=== PATIENT | female | born 1985 | race Caucasian/White ===

== ENCOUNTER 2021-09-07 12:27 | Emergency (ER) | payer SELFPAY ==
[~2021-09-07] VITALS: Ht 167.4 cm; Wt 68.0 kg
[~2021-09-07 12:27] MED LIST: FRS325T PO; HYDR-3583 PO; IBP600T1 PO; KCL20TCR PO; METR500T PO; NITR-65 PO; PREN1TAB39 PO; SERT25TA; [UNRECOGNIZED DRUG - REMARK] PO
[2021-09-07 13:38] LABS: BASOPHILS % (AUTO) 0 % (0-10); EOSINOPHILS % (AUTO) 0 % (0-10); HEMATOCRIT 35 % (35-52); HEMOGLOBIN 11.4 g/dL (11.5-16.0); LYMPHOCYTES # (AUTO) 0.4 10^3/uL (1.0-4.0); LYMPHOCYTES % (AUTO) 4 % (12-44); MEAN CORPUSCULAR HEMOGLOBIN 27 pg (25-34); MEAN CORPUSCULAR HGB CONC 33 g/dL (32-36); MEAN CORPUSCULAR VOLUME 82 fL (80-99); MEAN PLATELET VOLUME 10.5 fL (9.0-12.2); MONOCYTES # (AUTO) 0.9 10^3/uL (0.0-1.0); MONOCYTES % (AUTO) 11 % (0-12); NEUTROPHILS # (AUTO) 7.3 10^3/uL (1.8-7.8); NEUTROPHILS % (AUTO) 84 % (42-75); PLATELET COUNT 177 10^3/uL (130-400); WHITE BLOOD COUNT 8.7 10^3/uL (4.3-11.0)
[2021-09-07 13:49] LABS: HYPOCHROMASIA SLIGHT; LYMPHOCYTES % (MANUAL) 3 %; MONOCYTES % (MANUAL) 10 %; NEUTROPHILS % (MANUAL) 87 %
[2021-09-07 13:59] LABS: ALBUMIN 3.8 GM/DL (3.2-4.5)
[2021-09-07 14:00] LABS: POTASSIUM 4.1 MMOL/L (3.6-5.0)
[2021-09-07 14:01] LABS: CALCIUM 8.6 MG/DL (8.5-10.1)
[2021-09-07 14:02] LABS: TOTAL PROTEIN 6.3 GM/DL (6.4-8.2)
[2021-09-07 14:04] LABS: BILIRUBIN,TOTAL 0.3 MG/DL (0.1-1.0)
[2021-09-07 14:06] LABS: CREATININE SERUM 0.64 MG/DL (0.60-1.30)
[2021-09-07] MEDS ORDERED: NS IV 1000 ML 1,000 ML IV ONE (14:15)
[2021-09-07] MEDS ORDERED: KETOROLAC 30 MG/ML VIAL IVP ONE (14:15)
[2021-09-07] MEDS ORDERED: ACETAMINOPHEN 500 MG TAB (TYLENOL) PO ONE (14:15)
--- NOTE | 2021-09-07 14:30 | ED Cough/URI ---
General Chief Complaint: COVID19 Suspect/Confirmed Stated Complaint: BODY ACHES,N/V,COUGH, CHILLS Nursing Triage Note: BEGAN HAVING SYMPTOMS LAST NIGHT OF COUGH, FATIGUE, FEELING VERY TIRED, AND CHILLING AT HOME. Source: patient Exam Limitations: no limitations History of Present Illness Date Seen by Provider: Sep 07, 2021 Time Seen by Provider: 13:59 Initial Comments This is a 36-year-old female who presented to the ER via POV with complaints of cough, generalized body aches fatigue and chills that started around midnight last night. Allergies and Home Medications Allergies Coded Allergies: No Known Drug Allergies (Unverified , 09/07/08) Past Kfgzvrr-Fgxrgr-Nszlzz Hx Patient Social History Tobacco Use?: Yes Tobacco type used: Cigarettes Smoking Status: Current Everyday Smoker Use of E-Cig and/or Vaping dev: No Substance use?: No Alcohol Use?: No Pt feels they are or have been: No Immunizations Up To Date Influenza Vaccine Up-to-Date: No; Not Current First/Initial COVID19 Vaccinat: DECLINED Past Medical History Reproductive Disorders: No Sexually Transmitted Disease: Yes (IN THE PAST) Physical Exam Vital Signs - First Documented 09/07/21 13:10 Temp 37.4 Pulse 104 Resp 23 B/P (MAP) 105/69 (81) Pulse Ox 100 Capillary Refill : Less Than 3 Seconds Height: 5'2" Weight: 155lbs. oz. 70.081349us; 24.00 BMI Method:Stated Progress/Results/Core Measures Suspected Sepsis SIRS Temperature: Pulse: 104 Respiratory Rate: 23 Laboratory Tests 09/07/21 13:16: White Blood Count 8.7 Blood Pressure 105 /69 Mean: 81 Laboratory Tests 09/07/21 13:16: Creatinine 0.64, Platelet Count 177, Total Bilirubin 0.3 Results/Orders Lab Results Laboratory Tests Test 09/07/21 13:16 Range/Units White Blood Count 8.7 4.3-11.0 10^3/uL Red Blood Count 4.28 3.80-5.11 10^6/uL Hemoglobin 11.4 L 11.5-16.0 g/dL Hematocrit 35 35-52 % Mean Corpuscular Volume 82 80-99 fL Mean Corpuscular Hemoglobin 27 25-34 pg Mean Corpuscular Hemoglobin Concent 33 32-36 g/dL Red Cell Distribution Width 16.8 H 10.0-14.5 % Platelet Count 177 130-400 10^3/uL Mean Platelet Volume 10.5 9.0-12.2 fL Immature Granulocyte % (Auto) 1 % Neutrophils (%) (Auto) 84 H 42-75 % Lymphocytes (%) (Auto) 4 L 12-44 % Monocytes (%) (Auto) 11 0-12 % Eosinophils (%) (Auto) 0 0-10 % Basophils (%) (Auto) 0 0-10 % Neutrophils # (Auto) 7.3 1.8-7.8 10^3/uL Lymphocytes # (Auto) 0.4 L 1.0-4.0 10^3/uL Monocytes # (Auto) 0.9 0.0-1.0 10^3/uL Eosinophils # (Auto) 0.0 0.0-0.3 10^3/uL Basophils # (Auto) 0.0 0.0-0.1 10^3/uL Immature Granulocyte # (Auto) 0.1 0.0-0.1 10^3/uL Neutrophils % (Manual) 87 % Lymphocytes % (Manual) 3 % Monocytes % (Manual) 10 % Hypochromasia SLIGHT Sodium Level 137 135-145 MMOL/L Potassium Level 4.1 3.6-5.0 MMOL/L Chloride Level 104 98-107 MMOL/L Carbon Dioxide Level 22 21-32 MMOL/L Anion Gap 11 5-14 MMOL/L Blood Urea Nitrogen 10 7-18 MG/DL Creatinine 0.64 0.60-1.30 MG/DL Estimat Glomerular Filtration Rate 116 BUN/Creatinine Ratio 16 Glucose Level 94 70-105 MG/DL Calcium Level 8.6 8.5-10.1 MG/DL Corrected Calcium 8.8 8.5-10.1 MG/DL Total Bilirubin 0.3 0.1-1.0 MG/DL Aspartate Amino Transf (AST/SGOT) 24 5-34 U/L Alanine Aminotransferase (ALT/SGPT) 23 0-55 U/L Alkaline Phosphatase 56 40-136 U/L Total Protein 6.3 L 6.4-8.2 GM/DL Albumin 3.8 3.2-4.5 GM/DL Influenza Type A (RT-PCR) Not Detected Not Detecte Influenza Type B (RT-PCR) Not Detected Not Detecte SARS-CoV-2 RNA (RT-PCR) Detected H Not Detecte My Orders Orders - MOUNA MCCLELLAND TRA[employer] EXAMINER Cbc With Automated Diff (09/07/21 13:30) Comprehensive Metabolic Panel (09/07/21 13:30) Urine Bedside (09/07/21 13:30) Urinalysis (09/07/21 13:30) Drug Screen Stat (Urine) (09/07/21 13:30) Covid 19 Inhouse Test (09/07/21 13:30) Influenza A And B By Pcr (09/07/21 13:30) Manual Differential (09/07/21 13:16) Ns Iv 1000 Ml (Sodium Chloride 0.9%) (09/07/21 14:15) Acetaminophen Tablet (Tylenol Tablet) (09/07/21 14:15) Ketorolac Injection (Toradol Injection) (09/07/21 14:15) Chest 1 View, Ap/Pa Only (09/07/21 14:03) Rx-Nirmatrelvir/Ritonavir(Eua) (Rx-Paxlo (09/07/21 21:00) Vital Signs/I&O 09/07/21 13:10 Temp 37.4 Pulse 104 Resp 23 B/P (MAP) 105/69 (81) Pulse Ox 100 Capillary Refill : Less Than 3 Seconds Blood Pressure Mean: 81 Departure Impression Primary Impression: COVID-19 Disposition: 01 HOME, SELF-CARE Condition: Stable Departure-Patient Inst. Decision time for Depature: 14:19 Referrals: NO,LOCAL PHYSICIAN (PCP/Family) Primary Care Physician Patient Instructions: COVID-19 Vaccines Add. Discharge Instructions: Plan: 1. Take Tylenol or Ibuprofen as needed for fever and chills per package. 2. Take Paxlovid daily as directed for your COVID symptoms. 3. You will need to isolate at home for 5 days and then wear a mask for a remaining 5 days. 4. Return for any new, concerning, or worsening symptoms. All discharge instructions reviewed with patient and/or family. Voiced understanding. MOUNA MCCLELLAND TRAIN EXAMINER Sep 07, 2021 14:30
--- NOTE | 2021-09-07 14:37 | Diagnostic Imaging Report ---
INDICATION: Cough, COVID positive Frontal chest obtained at 2:29 p.m. Heart and mediastinal silhouette are normal in appearance. The lungs are clear. There is no pneumothorax or pleural fluid. IMPRESSION: Negative chest. Dictated by: Dictated on workstation # [id number]
[2021-09-07] MEDS ORDERED: RX-NIRMATRELVIR/RITONAVIR (PAXLOVID) #30 TABS PO ONE (14:45)
[2021-09-07 15:30] LABS: BILIRUBIN,URINE NEGATIVE (NEGATIVE); CLARITY,URINE SL CLOUDY; COLOR,URINE YELLOW; GLUCOSE, URINE (UA) NEGATIVE (NEGATIVE); KETONES,URINE 1+ (NEGATIVE); LEUKOCYTE ESTERASE ,URINE NEGATIVE (NEGATIVE); NITRITE,URINE NEGATIVE (NEGATIVE); PROTEIN,URINE TRACE (NEGATIVE)
[2021-09-07 15:49] LABS: AMPHETAMINE SCREEN, URINE NEGATIVE (NEGATIVE); BARBITURATE SCREEN URINE NEGATIVE (NEGATIVE); BENZODIAZEPINES SCREEN URINE NEGATIVE (NEGATIVE); CANNABINOID SCREEN, URINE NEGATIVE (NEGATIVE); COCAINE SCREEN URINE NEGATIVE (NEGATIVE); METHADONE STAT NEGATIVE (NEGATIVE); OPIATE SCREEN URINE NEGATIVE (NEGATIVE); OXYCODONE STAT NEGATIVE (NEGATIVE); PROPOXYPHENE STAT NEGATIVE (NEGATIVE); TRICYCLIC ANTIDEPRESSANTS SCRE NEGATIVE (NEGATIVE)
[2021-09-07 15:55] LABS: BACTERIA,URINE TRACE /HPF; WBC,URINE RARE /HPF
[2021-09-07 16:03] VITALS: BP 97/54
[2021-09-07] MEDS ORDERED: RX-NIRMATRELVIR/RITONAVIR (PAXLOVID) #30 TABS PO SCH (21:00)
== END 2021-09-07 16:03 | disposition home or self-care (01) ==
LOC: EDUNIT# 12:27 → ER 12:30
DX: U07.1 COVID-19 (principal); F17.210 Nicotine dependence, cigarettes, uncomplicated; Z28.310 Unvaccinated for COVID-19
CPT/HCPCS: 36415; 71045; 80053; 80306; 81000; 84703; 85007; 85027; 87636